=== PATIENT | male | born 1970 | race Two or more races ===

== ENCOUNTER 2024-11-18 13:41 | Inpatient (IN) | payer MEDICAID, OTHER ==
[~2024-11-18] VITALS: Ht 165.1 cm; Wt 75.5 kg
--- NOTE | 2024-11-18 13:53 | ED.PDOC ---
History of Present Illness HPI Comments 54-year-old male came to the ER stating that he has been having chest pain for the past 2 hours. 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 He does have a history of hypercholesterol hypertension blood pressure on arrival was 137/71. He states that his chest pain radiates to the shoulder. Denies any other symptoms. Chief Complaint: Chest Pain Time Seen by MD: 13:48 Reviewed Notes: Nurses Notes, Medications, Allergies Information Source: Patient Mode of Arrival: Ambulatory Severity: Moderate Timing: Hours Duration: Since onset Past Medical History PAST MEDICAL HISTORY: High Lipids, HTN Surgical History: Appendectomy, Denies all surgeries Social History Smoker: Non-Smoker Alcohol: Denies ETOH Use Drugs: Denies Drug Use Constitutional: denies: chills, diaphoresis, fatigue, fever, malaise, sweats, weakness, others EENTM: denies: blurred vision, double vision, ear bleeding, ear discharge, ear drainage, ear pain, ear ringing, eye pain, eye redness, hearing loss, mouth pain, mouth swelling, nasal discharge, nose bleeding, nose congestion, nose pain, photophobia, tearing, throat pain, throat swelling, voice changes, others Respiratory: denies: cough, hemoptysis, orthopnea, SOB at rest, shortness of breath, SOB with excertion, stridor, wheezing, others Cardiovascular: reports: chest pain; denies: dizzy spells, diaphoresis, Dyspnea on exertion, edema, irregular heart beat, left arm pain, lightheadedness, palpitations, PND, syncope, others Gastrointestinal: denies: abdomen distended, abdominal pain, blood streaked bowels, constipated, diarrhea, dysphagia, difficulty swallowing, hematemesis, melena, nausea, poor appetite, poor fluid intake, rectal bleeding, rectal pain, vomiting, others Genitourinary: denies: burning, dysuria, flank pain, frequency, hematuria, incontinence, penile discharge, penile sore, pain, testicle pain, testicle swelling, urgency, others Neurological: denies: dizziness, fainting, headache, left sided numbness, left sided weakness, numbness, paresthesia, pre-existing deficit, right sided numbness, right sided weakness, seizure, speech problems, tingling, tremors, weakness, others Musculoskeletal: denies: back pain, gout, joint pain, joint swelling, muscle pain, muscle stiffness, neck pain, others Integumetry: denies: bruises, change in color, change in hair/nails, dryness, laceration, lesions, lumps, rash, wounds, others Allergic/Immunocompromised: denies: Difficulty Healing, Frequent Infections, Hives, Itching, others Hematologic/Lymphatic: denies: anemia, blood clots, easy bleeding, easy bruising, swollen glands, others Endocrine: denies: excessive hunger, excessive sweating, excessive thirst, excessive urination, flushing, intolerance to cold, intolerance to heat, unexplained weight gain, unexplained weight loss, others Psychiatric: denies: anxiety, bipolar disorder, depression, hopeless, panic disorder, schizophrenia, sleepless, suicidal, others Physical Exam General Appearance: Moderate Distress HEENT: Normal ENT Inspection, Pharynx Normal, TMs Normal Neck: Full Range of Motion, Non-Tender, Normal, Normal Inspection Respiratory: Chest Non-Tender, Lungs Clear, No Accessory Muscle Use, No Respiratory Distress, Normal Breath Sounds Cardiovascular: No Edema, No JVD, No Murmur, No Gallop, Normal Peripheral Pulses, Regular Rate/Rhythm Breast Exam: Deferred Gastrointestinal: No Organomegaly, Non Tender, No Pulsatile Mass, Normal Bowel Sounds, Soft Genitalia: Deferred Pelvic: Deferred Rectal: Deferred Extremities: No calf tenderness, Normal capillary refill, Normal inspection, Normal range of motion, Non-tender, No pedal edema Musculoskeletal : Apperance: Normal Neurologic: Alert, 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 Was a procedure done?: No EKG EKG : Pulse Rate (adult): 80 Cardiac Rhythm: NSR Differential Dx Considerations may include: Chest pain Electrolyte imbalance X-Ray, Labs, Meds, VS Vital Signs Date Time Temp Pulse Resp B/P (MAP) Pulse Ox O2 Delivery O2 Flow Rate FiO2 11/18/24 13:53 80 Lab Test 11/18/24 13:58 Range/Units White Blood Count Pending Red Blood Count Pending Hemoglobin Pending Hematocrit Pending Mean Corpuscular Volume Pending Mean Corpuscular Hemoglobin Pending Mean Corpuscular Hemoglobin Concent Pending Red Cell Distribution Width Pending Platelet Count Pending Mean Platelet Volume Pending Neutrophils (%) (Auto) Pending Lymphocytes (%) (Auto) Pending Monocytes (%) (Auto) Pending Basophils (%) (Auto) Pending Neutrophils # (Auto) Pending Lymphocytes # (Auto) Pending Monocytes # (Auto) Pending Sodium Level Pending Potassium Level Pending Chloride Level Pending Carbon Dioxide Level Pending Anion Gap Pending Blood Urea Nitrogen Pending Creatinine Pending Glomerular Filtration Rate Calc Pending BUN/Creatinine Ratio Pending Serum Glucose Pending Calcium Level Pending Troponin I High Sensitivity Pending Patient alert. Complaining of chest pain. Vitals stable. Answering questions Was given aspirin. Was given nitro Was given morphine Was given Zofran. Continues to have chest pain. EKG reviewed does not show any acute changes. Has risk factors for coronary artery disease. Explained to the patient. Continue monitoring. Time of 1ST Reevaluation: 13:52 Reevaluation 1ST: Unchanged Patient Education/Counseling: Diagnosis, Treatment, Prognosis Family Education/Counseling: No Family Present SEPSIS Sepsis Screen Physician Orders Troponin-I Hs (11/18/24 13:44) Electrocardigram (11/18/24 13:44) Troponin-I Hs (11/18/24 14:44) Troponin-I Hs (11/18/24 16:44) Electrocardigram (11/18/24 14:44) Electrocardigram (11/18/24 16:44) Complete Blood Count (11/18/24 13:53) Basic Metabolic Panel (11/18/24 13:53) Vital Signs Date Time Temp Pulse Resp B/P (MAP) Pulse Ox O2 Delivery O2 Flow Rate FiO2 11/18/24 13:53 80 Laboratory Tests Test 11/18/24 13:58 White Blood Count Pending Departure 1 Departure Time of Disposition: 13:52 Impression: Primary Impression: Chest pain of unknown etiology Disposition: 09 ADMITTED INPATIENT Admit to: Med Surg Condition: Guarded Critical Care Note Critical Care Time?: Yes (90 min-critical care time only) Critical care comment: Continue to monitor Stability Stability form required: No Heart Score Heart Score: Heart Score Response (Comments) Value History Slightly Suspicious 0 EKG Normal 0 Age 45-64 1 Risk Factors >3 or Hx ASHD 2 Troponin Normal limit 0 Total 3 ONDINA RANDALL MD Nov 18, 2024 13:53
[2024-11-18 14:08] LABS: Basophils # (auto) 0.1 10 ^3/uL (0-0.2); Eosinophils # (auto) 0 10 ^3/uL (0-0.8); Eosinophils % (auto) 0.5 % (0.0-7.0); Hematocrit 41.2 % (41.0-53.0); Hemoglobin 14.2 g/dL (13.5-17.5); Lymphocytes # (auto) 2.1 10 ^3/uL (0.4-5.4); Lymphocytes % (auto) 29.1 % (10.0-50.0); Mean Corpuscular Hemoglobin 29.4 pg (28.0-32.0); Mean Corpuscular Hgb Conc. 34.5 g/dL (32.0-36.0); Mean Corpuscular Volume 85.2 fL (80.0-100.0); Monocytes # (auto) 0.4 10 ^3/uL (0-1.3); Monocytes % (auto) 5.2 % (0.0-12.0); Neutrophils # (auto) 4.6 10 ^3/uL (1.6-8.6); Neutrophils % (auto) 64.2 % (37.0-80.0); Nucleated Red Blood Cells % 0.1 %; Platelet Count (auto) 277 10^3/uL (140-450); Red Blood Cells 4.83 10^6/uL (4.5-5.90); Red Cell Distribution Width 14.4 % (11.8-14.3); White Blood Cell 7.2 10^3/uL (4.4-10.8)
[2024-11-18 14:17] LABS: Chloride 104 mmol/L (98-107); Potassium 3.9 mmol/L (3.5-5.1); Sodium 138 mmol/L (136-145)
[2024-11-18 14:18] LABS: Calcium 9.9 mg/dL (8.7-10.4)
[2024-11-18 14:19] LABS: Anion Gap 13 (5-15); Carbon Dioxide 21 mmol/L (20-31)
[2024-11-18 14:23] LABS: Blood Urea Nitrogen 20 mg/dL (9-23); Glucose 178 mg/dL (74-106)
[2024-11-18] MEDS: NITROGLYCERIN 0.4 MG SL TAB SL ONE (14:57)
[2024-11-18] MEDS: ASPirin 325 MG TAB PO ONE (14:57)
[2024-11-18] MEDS: ONDANSETRON HCL 4 MG/2 ML VIAL IV ONE (15:06)
[2024-11-18] MEDS: MORPHINE SULFATE 4 MG/ML SYR/VIAL IV ONE (15:07)
[2024-11-18] MEDS ORDERED: DOCUSATE SOD 100 MG CAP PO PRN (22:45)
[2024-11-18] MEDS: SODIUM CHLORIDE 0.9% 1,000 ML IV SCH (22:45)
[2024-11-18] MEDS ORDERED: ACETAMINOPHEN 325 MG TAB PO PRN (22:45)
[2024-11-18] MEDS ORDERED: hydrALAZINE HCL 20 MG/ML VL IV PRN (22:45)
[2024-11-18] MEDS ORDERED: ONDANSETRON HCL 4 MG/2 ML VIAL IV PRN (22:45)
--- NOTE | 2024-11-18 23:50 | DVHHP2 ---
History of Present Illness Reason for Visit: Chest pain of unknown etiology History of Present Illness The patient is a 54-year-old male with past medical history of hypertension, hyperlipidemia, and prediabetes who presented to [facility] ED with complaint of chest pain. Patient reports he has been experiencing chest pain that radiates to the left shoulder, rating 6/10 numeric scale, getting worse that prompted this visit. Patient was seen and evaluated in the ED, laboratory data shows WBC 7.2, platelets 277, sodium 138, potassium 3.9, BUN 20, creatinine 1.25, glucose 178, hemoglobin A1c 5.7, calcium 9.9, troponin < 3, blood pressure 123/73, heart rate 63, temperature 98.2 F, O2 saturation 97% on room air. Please see medication orders section in the computer. On my assessment, patient denies chest pain at this moment, no headache, no dizziness, no shortness of breath, no diaphoresis, no nausea, no vomiting, no fever, no chills. Patient was admitted for further evaluation and medical management. Past Medical History High Lipids, HTN, Pre diabetes Past Surgical History Appendectomy Family History Reviewed, noncontributory to the management of this case. Past Social History The patient lives at home, denies smoking, alcohol or illicit drugs abuse. Review of Systems Constitutional: Yes: Weakness; No: Fever, Chills, Sweats, Malaise, Other Eyes: No: Pain, Vision change, Conjunctivae inflammation, Eyelid inflammation, Other, Redness ENT: No: Ear pain, Ear discharge, Nose pain, Nose discharge, Nose congestion, Mouth pain, Mouth swelling, Throat pain, Throat swelling, Other Respiratory: No: Cough, Dry, Shortness of breath, SOB with excertion, Wheezing, Hemoptysis, Pleuritic Pain, Sputum, Wheezing, Other Cardiovascular: Chest Pain; No: Palpitations, Orthopnea, Paroxysmal Noc. Dyspnea, Edema, Lt Headedness, Other Gastrointestinal: No: Nausea, Vomiting, Abdominal Pain, Diarrhea, Constipation, Melena, Hematochezia, Other Genitourinary: No Dysuria, No Frequency, No Incontinence, No Hematuria, No Retention, No Other Musculoskeletal: No: other, neck pain, shoulder pain, arm pain, back pain, hand pain, leg pain, foot pain Skin: No: Rash, Lesions, Jaundice, Bruising, Other Neurological: No: Weakness, Numbness, Incoordination, Change in speech, Confusion, Seizures, Other Allergies: Coded Allergies: NO KNOWN ALLERGIES (Unverified , 11/18/24) Medications Current Medications Medications Dose Ordered Sig/Sergio Route Start Time Stop Time Status Last Admin Dose Admin Amlodipine Besylate 5 mg DAILY PO 11/19/24 10:00 Hydralazine HCl 10 mg Q6HP PRN IV 11/18/24 22:45 Aspirin 81 mg DAILY PO 11/19/24 10:00 Atorvastatin Calcium 20 mg HS PO 11/19/24 22:00 Sodium Chloride 1,000 ml @ 60 mls/hr [id number] IV 11/18/24 22:45 Acetaminophen/ Hydrocodone Bitart 1 tab Q4HP PRN PO 11/18/24 22:45 Ondansetron HCl 4 mg Q4HP PRN IV 11/18/24 22:45 Docusate Sodium 100 mg BIDPRN PRN PO 11/18/24 22:45 Acetaminophen 650 mg Q6HP PRN PO 11/18/24 22:45 Exam Vital Signs Vital Signs Date Time Temp Pulse Resp B/P (MAP) Pulse Ox O2 Delivery O2 Flow Rate FiO2 11/18/24 23:21 97.6 67 16 130/82 (98) 99 97.6 11/18/24 20:40 Room Air* 0 21 General Appearance: Alert, Oriented X3, Cooperative, No acute distress HEENT: Atraumatic, PERRLA, EOMI, Mucous membr. moist/pink Respiratory: Clear to auscultation, Normal air movement Cardiovascular: Regular rate, Normal S1, Normal S2, No murmurs Abdominal: Normal bowel sounds, Soft, No tenderness, No hepatospenomegaly, No masses Extremities: No clubbing, No cyanosis, No edema, Normal pulses, No tenderness/swelling Skin: No rashes, No breakdown, No significant lesion Neuro: Normal speech, Normal tone, Sensation intact, Cranial nerves 3-12 NL, Reflexes 2+, Other (Weakness) Psych/Mental Status: Mental status NL, Mood NL Labs/Xrays Labs Test 11/18/24 14:48 11/18/24 13:58 Range/Units Troponin I High Sensitivity < 3 L </=54 ng/L White Blood Count 7.2 4.4-10.8 10^3/uL Red Blood Count 4.83 4.5-5.90 10^6/uL Hemoglobin 14.2 13.5-17.5 g/dL Hematocrit 41.2 41.0-53.0 % Mean Corpuscular Volume 85.2 80.0-100.0 fL Mean Corpuscular Hemoglobin 29.4 28.0-32.0 pg Mean Corpuscular Hemoglobin Concent 34.5 32.0-36.0 g/dL Red Cell Distribution Width 14.4 H 11.8-14.3 % Platelet Count 277 140-450 10^3/uL Mean Platelet Volume 7.9 6.9-10.8 fL Neutrophils (%) (Auto) 64.2 37.0-80.0 % Lymphocytes (%) (Auto) 29.1 10.0-50.0 % Monocytes (%) (Auto) 5.2 0.0-12.0 % Eosinophils (%) (Auto) 0.5 0.0-7.0 % Basophils (%) (Auto) 1.0 0.0-2.0 % Neutrophils # (Auto) 4.6 1.6-8.6 10 ^3/uL Lymphocytes # (Auto) 2.1 0.4-5.4 10 ^3/uL Monocytes # (Auto) 0.4 0-1.3 10 ^3/uL Eosinophils # (Auto) 0 0-0.8 10 ^3/uL Basophils # (Auto) 0.1 0-0.2 10 ^3/uL Nucleated Red Blood Cells 0.1 % Sodium Level 138 136-145 mmol/L Potassium Level 3.9 3.5-5.1 mmol/L Chloride Level 104 98-107 mmol/L Carbon Dioxide Level 21 20-31 mmol/L Anion Gap 13 5-15 Blood Urea Nitrogen 20 9-23 mg/dL Creatinine 1.25 0.700-1.30 mg/dL Glomerular Filtration Rate Calc 69 >90 mL/min BUN/Creatinine Ratio 16.0 10.0-20.0 Serum Glucose 178 H 74-106 mg/dL Hemoglobin A1c 5.7 <5.7 % A1C Calcium Level 9.9 8.7-10.4 mg/dL Assessment/Plan Assessment/Plan Chest pain of unknown etiology Hyperglycemia Generalized weakness Plan 1. Admit to telemetry unit 2. Breathing treatment 3. Pain control management 4. Management of fluids and electrolytes 5. Consultation for hospitalist 6. Diagnostic tests chest x-ray 7. DVT prophylaxis-on aspirin 8. Repeat labs CBC, CMP in a.m. 9. Continue with current medical management 10. Treatment plan discussed with patient and RN. Patient verbalized understanding. Plan discussed with: Patient, Other (RN) My Orders Orders - JOAO DECKER DNP Procedure Category Date Status Time Amlodipine Tablet PHA 11/19/24 In Process (Norvasc Tablet) 10:00 Hydralazine Injection PHA 11/18/24 In Process (Apresoline Inject 22:45 Aspirin Tablet PHA 11/19/24 In Process 10:00 Atorvastatin (Lipitor) PHA 11/19/24 In Process 22:00 Allergies ESCOBAR 11/18/24 In Process 22:38 Code Status CODE 11/18/24 Transmitted 22:38 Sodium Chloride 0.9% PHA 11/18/24 In Process 22:45 Oxygen Per Hour RT 11/18/24 Transmitted 22:38 Hydrocodone-Acet PHA 11/18/24 In Process 5/325mg Tab (Adams 22:45 Ondansetron Hcl PHA 11/18/24 In Process (Zofran) 22:45 Docusate Sodium PHA 11/18/24 In Process Capsule (Colace 22:45 Complete Blood Count LAB 11/19/24 Verified 04:00 Comprehensive LAB 11/19/24 Verified Metabolic Panel 04:00 Cardiac DIET 11/19/24 Transmitted Diet-2gna,Lofat,Lochol Breakfast Condition: Serious ESCOBAR 11/18/24 In Process 22:38 Acetaminophen Tablet PHA 11/18/24 In Process (Tylenol Tablet) 22:45 Bedrest With Bathroom ESCOBAR 11/18/24 In Process Privileg 22:38 Sequential ESCOBAR 11/18/24 In Process Compression Device Problem List: (1) Chest pain of unknown etiology (2) Hyperglycemia (3) Generalized weakness Date of Service: Nov 18, 2024 Billing Provider: JOAO DECKER DNP Common Visit Codes: [id number] INP/OBS CARE (HIGH) JOAO DECKER DNP Nov 18, 2024 23:50
[2024-11-19] VITALS (7 sets, daily range): BP systolic 113–135; BP diastolic 61–75; PULSE 53–73; RESP 11–20; TEMP 97.7–98.4; O2SAT 96–99
[2024-11-19] MEDS ORDERED: NITROGLYCERIN 0.4 MG SL TAB SL PRN
[2024-11-19] MEDS ORDERED: MORPHINE SULFATE INJ 2 MG/ml SYRG IV PRN
[2024-11-19] MEDS ORDERED: ATOR40TA52 PO (03:21)
[2024-11-19] MEDS ORDERED: AMLO1TAB22 PO (03:21)
[2024-11-19] MEDS ORDERED: LOS25T PO (03:21)
[2024-11-19 06:40] LABS: Basophils # (auto) 0 10 ^3/uL (0-0.2); Basophils % (auto) 0.6 % (0.0-2.0); Eosinophils # (auto) 0.1 10 ^3/uL (0-0.8); Eosinophils % (auto) 1.3 % (0.0-7.0); Hematocrit 38.4 % (41.0-53.0); Hemoglobin 13.2 g/dL (13.5-17.5); Lymphocytes % (auto) 25.6 % (10.0-50.0); Mean Corpuscular Hemoglobin 29.5 pg (28.0-32.0); Mean Corpuscular Hgb Conc. 34.3 g/dL (32.0-36.0); Mean Corpuscular Volume 85.9 fL (80.0-100.0); Monocytes # (auto) 0.6 10 ^3/uL (0-1.3); Monocytes % (auto) 8.3 % (0.0-12.0); Neutrophils % (auto) 64.2 % (37.0-80.0); Platelet Count (auto) 256 10^3/uL (140-450); Red Blood Cells 4.47 10^6/uL (4.5-5.90); Red Cell Distribution Width 14.6 % (11.8-14.3); White Blood Cell 7.7 10^3/uL (4.4-10.8)
[2024-11-19 07:01] LABS: Alanine Aminotransferase 15 U/L (7-40); Albumin 4.2 g/dL (3.2-4.8); Alkaline Phosphatase 93 U/L (46-116); Anion Gap 8 (5-15); Aspartate Aminotransferase 21 U/L (<34); BUN/Creatinine Ratio 13.8 (10.0-20.0); Bilirubin, Total 0.8 mg/dL (0.2-1.0); Blood Urea Nitrogen 16 mg/dL (9-23); Calcium 8.8 mg/dL (8.7-10.4); Carbon Dioxide 28 mmol/L (20-31); Chloride 105 mmol/L (98-107); Glucose 99 mg/dL (74-106); Potassium 4.1 mmol/L (3.5-5.1); Sodium 141 mmol/L (136-145); Total Protein 7.2 g/dL (5.7-8.2)
[2024-11-19] MEDS: ASPirin 81 mg TAB PO SCH (09:02)
[2024-11-19] MEDS: amLODIPine BESYLATE 5 MG TAB PO SCH (09:02)
--- NOTE | 2024-11-19 16:14 | DVHPN2 ---
Subjective Patient complained of chest pain. Changes from previous H/P or p: No Changes Eyes: No Pain, No Vision change, No Conjunctivae inflammation, No Eyelid inflammation, No Other, No Redness ENT: No Ear pain, No Ear discharge, No Nose pain, No Nose discharge, No Nose congestion, No Mouth pain, No Mouth swelling, No Throat pain, No Throat swelling, No Other Cardiovascular: Chest Pain; No Palpitations, No Orthopnea, No Paroxysmal Noc. Dyspnea, No Edema, No Lt Headedness, No Other Respiratory: No Cough, No Dry, No Shortness of breath, No SOB with excertion, No Wheezing, No Hemoptysis, No Pleuritic Pain, No Sputum, No Other Gastrointestinal: No Nausea, No Vomiting, No Abdominal Pain, No Diarrhea, No Constipation, No Melena, No Hematochezia, No Other Genitourinary: No Dysuria, No Frequency, No Incontinence, No Hematuria, No Retention, No Other Musculoskeletal: No other, No neck pain, No shoulder pain, No arm pain, No back pain, No hand pain, No leg pain, No foot pain Skin: No Rash, No Lesions, No Jaundice, No Bruising, No Other Objective Vitals Vital Signs Date Time Temp Pulse Resp B/P (MAP) Pulse Ox O2 Delivery O2 Flow Rate FiO2 11/19/24 12:39 98.0 73 11 115/71 (86) 98 98.0 11/18/24 20:40 Room Air* 0 21 Exam HEENT pupils are reactive Neck is supple CVS S1-S2 regular rate and rhythm Respiratory bilateral equal breath sounds GI positive bowel sounds Extremities no edema [employer]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 Medications Current Medications Medications Dose Ordered Sig/Sergio Route Start Time Stop Time Status Last Admin Dose Admin Amlodipine Besylate 5 mg DAILY PO 11/19/24 10:00 11/19/24 09:02 5 MG Hydralazine HCl 10 mg Q6HP PRN IV 11/18/24 22:45 Aspirin 81 mg DAILY PO 11/19/24 10:00 11/19/24 09:02 81 MG Atorvastatin Calcium 20 mg HS PO 11/19/24 22:00 Sodium Chloride 1,000 ml @ 60 mls/hr [id number] IV 11/18/24 22:45 11/19/24 12:50 60 MLS/HR Acetaminophen/ Hydrocodone Bitart 1 tab Q4HP PRN PO 11/18/24 22:45 Ondansetron HCl 4 mg Q4HP PRN IV 11/18/24 22:45 Docusate Sodium 100 mg BIDPRN PRN PO 11/18/24 22:45 Acetaminophen 650 mg Q6HP PRN PO 11/18/24 22:45 Nitroglycerin 0.4 mg Q5MINP PRN SL 11/19/24 00:00 Morphine Sulfate 2 mg Q30M PRN IV 11/19/24 00:00 Laboratory Results Laboratory Tests 11/19/24 06:15 Chemistry Test 11/19/24 06:15 Albumin 4.2 g/dL (3.2-4.8) Calcium Level 8.8 mg/dL (8.7-10.4) Total Protein 7.2 g/dL (5.7-8.2) LFT Test 11/19/24 06:15 Alanine Aminotransferase (ALT) 15 U/L (7-40) Alkaline Phosphatase 93 U/L (46-116) Aspartate Amino Transferase (AST) 21 U/L (<34) Total Bilirubin 0.8 mg/dL (0.2-1.0) Assessment/Plan Assessment/Plan 54-year-old male with a known history of hypertension, dyslipidemia hit for chest pain 1. Chest pain rule out acute [place] 2. Hypertension 3. Dyslipidemia -troponins, 2D echo, cardiology consultation Plan discussed with: Patient My Orders Orders - CHANG VARGAS MD Procedure Category Date Status Time * Cardiology Consult CONS 11/19/24 Transmitted 16:10 Date of Service: Nov 19, 2024 Billing Provider: CHANG VARGAS MD Common Visit Codes: [id number] INP/OBS CARE(MOD) CHANG VARGAS MD Nov 19, 2024 16:14
[2024-11-19] MEDS: ATORVASTATIN 20 MG TAB PO SCH (21:00)
[2024-11-20] VITALS (9 sets, daily range): BP systolic 118–141; BP diastolic 76–89; PULSE 58–98; RESP 14–20; TEMP 97.3–98.3; O2SAT 92–99
--- NOTE | 2024-11-20 11:12 | DVHINCON2 ---
Date Seen: Nov 20, 2024 Referring Physician Devin Reason for Consultation Chest Pain History of Present Illness 54-year-old male with PMH for HTN, HLD, occasional alcohol use, intermittent drug use with cocaine presents to the hospital with chest pain. Patient states he has at work when he had a sudden onset of chest pressure left-sided, nonradiating, associated with mild shortness of breath. Upon evaluation in the ER patient noted to have troponin negative x2. EKG negative for acute ischemic changes. Past Medical History HTN HLD Past Surgical History Denies previous cardiac surgeries Family History: Diabetes mellitus G8 MOTHER Social History Occasional cocaine use, occasional ETOH with binge drinking. Allergies: Coded Allergies: NO KNOWN ALLERGIES (Unverified , 11/18/24) Home Meds Reported Medications Amlodipine Besylate (Amlodipine Besylate) 5 Mg Tab, 1 TAB PO DAILY 11/19/24 Losartan Potassium (Losartan Potassium) 25 Mg Tab, 1 TAB PO DAILY 11/19/24 Atorvastatin Calcium (ATORVASTATIN CALCIUM) 40 Mg Tab, 1 TAB PO HS 11/19/24 Current Medications Current Medications Medications (Trade) Dose Ordered Sig/Sergio Route PRN Reason Start Time Stop Time Status Last Admin Atorvastatin Calcium (Lipitor) 20 mg HS PO 11/19/24 22:00 11/19/24 21:00 Review of Systems Constitutional: No: Fever, Chills, Sweats, Weakness, Malaise, Other Eyes: No: Pain, Vision change, Conjunctivae inflammation, Eyelid inflammation, Other, Redness ENT: No: Ear pain, Ear discharge, Nose pain, Nose discharge, Nose congestion, Mouth pain, Mouth swelling, Throat pain, Throat swelling, Other Respiratory: No: Cough, Dry, Shortness of breath, SOB with exertion, Wheezing, Hemoptysis, Pleuritic Pain, Sputum, Wheezing, Other Cardiovascular: ; No: , Orthopnea, Paroxysmal Noc. Dyspnea, Edema, Lt Headedness, Other positive: Chest Pain Palpitations Gastrointestinal: No: Nausea, Vomiting, Abdominal Pain, Diarrhea, Constipation, Melena, Hematochezia, Other Genitourinary: No Dysuria, No Frequency, No Incontinence, No Hematuria, No Retention, No Other Musculoskeletal: neck pain; No: other, shoulder pain, arm pain, back pain, hand pain, leg pain, foot pain Skin: No: Rash, Lesions, Jaundice, Bruising, Other Neurological: Other (Dizziness, headache.); No: Weakness, Numbness, Incoordination, Change in speech, Confusion, Seizures Vital Signs Vital Signs Date Time Temp Pulse Resp B/P (MAP) Pulse Ox O2 Delivery O2 Flow Rate FiO2 11/20/24 09:00 97.5 64 20 121/87 (98) 98 97.5 11/19/24 03:23 Room Air* 0 21 Physical Exam General appearance: Patient is well-developed, well-nourished, in no acute distress. HEENT: Exam shows: Normocephalic, atraumatic, PERRLA, EOMI Neck: Supple, no bruits Chest: Equal chest excursion bilaterally. Breath sounds normal-no rales or wheezes. Heart: Rhythm: Regular rate; no murmur or gallop Abdomen: Exam shows: Soft, nontender, nondistended Musculoskeletal: No clubbing, no cyanosis, no lower extremity edema Dermatology: Skin warm, moist. Neurological: Exam shows: Alert and oriented x4, normal speech Available prior records, labs, EKG, rhythm strips reviewed and interpreted Labs/Diagnostic Data Labs Test 11/19/24 06:15 11/18/24 14:48 11/18/24 13:58 Range/Units White Blood Count 7.7 4.4-10.8 10^3/uL Red Blood Count 4.47 L 4.5-5.90 10^6/uL Hemoglobin 13.2 L 13.5-17.5 g/dL Hematocrit 38.4 L 41.0-53.0 % Mean Corpuscular Volume 85.9 80.0-100.0 fL Mean Corpuscular Hemoglobin 29.5 28.0-32.0 pg Mean Corpuscular Hemoglobin Concent 34.3 32.0-36.0 g/dL Red Cell Distribution Width 14.6 H 11.8-14.3 % Platelet Count 256 140-450 10^3/uL Mean Platelet Volume 7.9 6.9-10.8 fL Neutrophils (%) (Auto) 64.2 37.0-80.0 % Lymphocytes (%) (Auto) 25.6 10.0-50.0 % Monocytes (%) (Auto) 8.3 0.0-12.0 % Eosinophils (%) (Auto) 1.3 0.0-7.0 % Basophils (%) (Auto) 0.6 0.0-2.0 % Neutrophils # (Auto) 5.0 1.6-8.6 10 ^3/uL Lymphocytes # (Auto) 2.0 0.4-5.4 10 ^3/uL Monocytes # (Auto) 0.6 0-1.3 10 ^3/uL Eosinophils # (Auto) 0.1 0-0.8 10 ^3/uL Basophils # (Auto) 0 0-0.2 10 ^3/uL Nucleated Red Blood Cells 0.0 % Sodium Level 141 136-145 mmol/L Potassium Level 4.1 3.5-5.1 mmol/L Chloride Level 105 98-107 mmol/L Carbon Dioxide Level 28 20-31 mmol/L Anion Gap 8 5-15 Blood Urea Nitrogen 16 9-23 mg/dL Creatinine 1.16 0.700-1.30 mg/dL Glomerular Filtration Rate Calc 75 >90 mL/min BUN/Creatinine Ratio 13.8 10.0-20.0 Serum Glucose 99 74-106 mg/dL Calcium Level 8.8 8.7-10.4 mg/dL Total Bilirubin 0.8 0.2-1.0 mg/dL Aspartate Amino Transferase (AST) 21 <34 U/L Alanine Aminotransferase (ALT) 15 7-40 U/L Alkaline Phosphatase 93 46-116 U/L Total Protein 7.2 5.7-8.2 g/dL Albumin 4.2 3.2-4.8 g/dL Troponin I High Sensitivity < 3 L </=54 ng/L Hemoglobin A1c 5.7 <5.7 % A1C Assessment * Chest pain - troponins negative. EKG negative for acute ischemic changes. Follow up echo. Continue on aspirin and statin. Plan for stress test in a.m.. NPO after midnight. * Uncontrolled HTN - better controlled, on amlodipine 5 mg p.o. daily. Titrate as tolerated. * HLD- statin * History of substance abuse - check UDS. Case Discussed with Dr Atkinson. Follow up echo, plan for stress test in a.m. for ischemic eval. NPO after midnight. Critical care, time spent: 40 minutes This medical document was created using an electronic medical record system with voice recognition software and computerized dictation system. Although this document has been carefully reviewed, there might still be some phonetic and typographical errors. Occasional wrong-word or ``sound-alike substitutions may have occurred due to the inherent limitations of voice recognition software. These areas are purely typographical due to imperfections of the software programs and do not reflect any compromise in the patient's medical care. Please read the chart carefully and recognize, using context, where these substitutions have occurred. Thank you for allowing me to participate in the management of this patient. The treatment plan was discussed with and agreed upon by patient/family including requesting consultants and ordering of imaging/procedures. Plan discussed with: Patient NYHA Physical activity limitations: Class2(Slight)fatigue,sob Date of Service: Nov 20, 2024 Billing Provider: WARNER VALERIO Cardiology Common Codes: [id number] INP/OBS CARE (High), [id number] CARE 30-74 MIN WARNER VALERIO Nov 20, 2024 11:12
--- NOTE | 2024-11-20 12:11 | DVH ---
AP portable chest CLINICAL INDICATION: Chest pain FINDINGS: Heart size is normal. No infiltrates or effusions. No bony thoracic abnormalities. IMPRESSION: 1. Normal chest x-ray.
--- NOTE | 2024-11-20 14:51 | DVHPN2 ---
Subjective Patient complained of chest pain. Changes from previous H/P or p: No Changes Eyes: No Pain, No Vision change, No Conjunctivae inflammation, No Eyelid inflammation, No Other, No Redness ENT: No Ear pain, No Ear discharge, No Nose pain, No Nose discharge, No Nose congestion, No Mouth pain, No Mouth swelling, No Throat pain, No Throat swelling, No Other Cardiovascular: Chest Pain; No Palpitations, No Orthopnea, No Paroxysmal Noc. Dyspnea, No Edema, No Lt Headedness, No Other Respiratory: No Cough, No Dry, No Shortness of breath, No SOB with excertion, No Wheezing, No Hemoptysis, No Pleuritic Pain, No Sputum, No Other Gastrointestinal: No Nausea, No Vomiting, No Abdominal Pain, No Diarrhea, No Constipation, No Melena, No Hematochezia, No Other Genitourinary: No Dysuria, No Frequency, No Incontinence, No Hematuria, No Retention, No Other Musculoskeletal: No other, No neck pain, No shoulder pain, No arm pain, No back pain, No hand pain, No leg pain, No foot pain Skin: No Rash, No Lesions, No Jaundice, No Bruising, No Other Objective Vitals Vital Signs Date Time Temp Pulse Resp B/P (MAP) Pulse Ox O2 Delivery O2 Flow Rate FiO2 11/20/24 13:00 97.5 64 20 136/83 (100) 98 97.5 11/19/24 03:23 Room Air* 0 21 Intake/Output Intake and Output 11/20/24 07:00 Intake Total 60 ml Balance 60 ml IV Total 60 ml Exam HEENT pupils are reactive Neck is supple CVS S1-S2 regular rate and rhythm Respiratory bilateral equal breath sounds GI positive bowel sounds Extremities no edema [employer] no motor deficit Medications Current Medications Medications Dose Ordered Sig/Sergio Route Start Time Stop Time Status Last Admin Dose Admin Amlodipine Besylate 5 mg DAILY PO 11/19/24 10:00 11/20/24 12:08 5 MG Hydralazine HCl 10 mg Q6HP PRN IV 11/18/24 22:45 Aspirin 81 mg DAILY PO 11/19/24 10:00 11/20/24 12:08 81 MG Atorvastatin Calcium 20 mg HS PO 11/19/24 22:00 11/19/24 21:00 20 MG Sodium Chloride 1,000 ml @ 60 mls/hr [id number] IV 11/18/24 22:45 11/20/24 12:07 60 MLS/HR Acetaminophen/ Hydrocodone Bitart 1 tab Q4HP PRN PO 11/18/24 22:45 Ondansetron HCl 4 mg Q4HP PRN IV 11/18/24 22:45 Docusate Sodium 100 mg BIDPRN PRN PO 11/18/24 22:45 Acetaminophen 650 mg Q6HP PRN PO 11/18/24 22:45 Nitroglycerin 0.4 mg Q5MINP PRN SL 11/19/24 00:00 Morphine Sulfate 2 mg Q30M PRN IV 11/19/24 00:00 Laboratory Results Laboratory Tests 11/19/24 06:15 Assessment/Plan Assessment/Plan 54-year-old male with a known history of hypertension, dyslipidemia hit for chest pain 1. Chest pain rule out acute [place] 2. Hypertension 3. Dyslipidemia -troponins, 2D echo, cardiology consultation appreciated patient is currently scheduled for stress test in a.m.. -keep NPO after midnight. Plan discussed with: Patient My Orders Orders - CHANG VARGAS MD Procedure Category Date Status Time * Cardiology Consult CONS 11/19/24 Transmitted 16:10 Date of Service: Nov 20, 2024 Billing Provider: CHANG VARGAS MD Common Visit Codes: [id number] INP/OBS CARE(MOD) CHANG VARGAS MD Nov 20, 2024 14:51
--- NOTE | 2024-11-20 23:18 | DVHINCON2 ---
Date Seen: Nov 20, 2024 Referring Physician Devin Reason for Consultation Chest Pain History of Present Illness This is a 54-year-old male with a PMH of HTN, HLD, occasional alcohol use, intermittent drug use with cocaine presents to the ED with complaints of chest pain. Patient states he has at work when he had a sudden onset of chest pressure left-sided, nonradiating, associated with mild shortness of breath. Upon eval uation in the ED patient noted to have troponin negative x 2. EKG negative for acute ischemic changes. Chest x-ray showed NAD. Patient was admitted to the hospital. I am asked to consult on this patient. Past Medical History HTN HLD Past Surgical History Denies previous cardiac surgeries Family History: Diabetes mellitus G8 MOTHER Allergies: Coded Allergies: NO KNOWN ALLERGIES (Unverified , 11/18/24) Home Meds Reported Medications Amlodipine Besylate (Amlodipine Besylate) 5 Mg Tab, 1 TAB PO DAILY 11/19/24 Losartan Potassium (Losartan Potassium) 25 Mg Tab, 1 TAB PO DAILY 11/19/24 Atorvastatin Calcium (ATORVASTATIN CALCIUM) 40 Mg Tab, 1 TAB PO HS 11/19/24 Current Medications Current Medications Medications (Trade) Dose Ordered Sig/Sergio Route PRN Reason Start Time Stop Time Status Last Admin Atorvastatin Calcium (Lipitor) 20 mg HS PO 11/19/24 22:00 11/19/24 21:00 Review of Systems Constitutional: No: Fever, Chills, Sweats, Weakness, Malaise, Other Eyes: No: Pain, Vision change, Conjunctivae inflammation, Eyelid inflammation, Other, Redness ENT: No: Ear pain, Ear discharge, Nose pain, Nose discharge, Nose congestion, Mouth pain, Mouth swelling, Throat pain, Throat swelling, Other Respiratory: No: Cough, Dry, Shortness of breath, SOB with exertion, Wheezing, Hemoptysis, Pleuritic Pain, Sputum, Wheezing, Other Cardiovascular: ; No: , Orthopnea, Paroxysmal Noc. Dyspnea, Edema, Lt Headed ness, Other positive: Chest Pain Palpitations Gastrointestinal: No: Nausea, Vomiting, Abdominal Pain, Diarrhea, Constipation, Melena, Hematochezia, Other Genitourinary: No Dysuria, No Frequency, No Incontinence, No Hematuria, No Ret ention, No Other Musculoskeletal: neck pain; No: other, shoulder pain, arm pain, back pain, hand pain, leg pain, foot pain Skin: No: Rash, Lesions, Jaundice, Bruising, Other Neurological: Other (Dizziness, headache.); No: Weakness, Numbness, Incoordinat ion, Change in speech, Confusion, Seizures Vital Signs Vital Signs Date Time Temp Pulse Resp B/P (MAP) Pulse Ox O2 Delivery O2 Flow Rate FiO2 11/20/24 16:36 97.3 60 20 132/76 (94) 98 97.3 11/20/24 08:00 Room Air* 0 21 Physical Exam GENERAL: Alert and oriented x 3. No acute distress. EYES: PERRL, EOMI. Anicteric. HENT: Moist mucous membranes. LUNGS: Clear to auscultation bilaterally. CARDIOVASCULAR: Regular rate and rhythm. ABDOMEN: Soft, nontender and nondistended. EXTREMITIES: No edema. NEUROLOGIC: No focal neurological deficits. SKIN: Warm, dry. Labs/Diagnostic Data Labs Test 11/19/24 06:15 11/18/24 14:48 11/18/24 13:58 Range/Units White Blood Count 7.7 4.4-10.8 10^3/uL Red Blood Count 4.47 L 4.5-5.90 10^6/uL Hemoglobin 13.2 L 13.5-17.5 g/dL Hematocrit 38.4 L 41.0-53.0 % Mean Corpuscular Volume 85.9 80.0-100.0 fL Mean Corpuscular Hemoglobin 29.5 28.0-32.0 pg Mean Corpuscular Hemoglobin Concent 34.3 32.0-36.0 g/dL Red Cell Distribution Width 14.6 H 11.8-14.3 % Platelet Count 256 140-450 10^3/uL Mean Platelet Volume 7.9 6.9-10.8 fL Neutrophils (%) (Auto) 64.2 37.0-80.0 % Lymphocytes (%) (Auto) 25.6 10.0-50.0 % Monocytes (%) (Auto) 8.3 0.0-12.0 % Eosinophils (%) (Auto) 1.3 0.0-7.0 % Basophils (%) (Auto) 0.6 0.0-2.0 % Neutrophils # (Auto) 5.0 1.6-8.6 10 ^3/uL Lymphocytes # (Auto) 2.0 0.4-5.4 10 ^3/uL Monocytes # (Auto) 0.6 0-1.3 10 ^3/uL Eosinophils # (Auto) 0.1 0-0.8 10 ^3/uL Basophils # (Auto) 0 0-0.2 10 ^3/uL Nucleated Red Blood Cells 0.0 % Sodium Level 141 136-145 mmol/L Potassium Level 4.1 3.5-5.1 mmol/L Chloride Level 105 98-107 mmol/L Carbon Dioxide Level 28 20-31 mmol/L Anion Gap 8 5-15 Blood Urea Nitrogen 16 9-23 mg/dL Creatinine 1.16 0.700-1.30 mg/dL Glomerular Filtration Rate Calc 75 >90 mL/min BUN/Creatinine Ratio 13.8 10.0-20.0 Serum Glucose 99 74-106 mg/dL Calcium Level 8.8 8.7-10.4 mg/dL Total Bilirubin 0.8 0.2-1.0 mg/dL Aspartate Amino Transferase (AST) 21 <34 U/L Alanine Aminotransferase (ALT) 15 7-40 U/L Alkaline Phosphatase 93 46-116 U/L Total Protein 7.2 5.7-8.2 g/dL Albumin 4.2 3.2-4.8 g/dL Troponin I High Sensitivity < 3 L </=54 ng/L Hemoglobin A1c 5.7 <5.7 % A1C Assessment Chest pain. Uncontrolled HTN. HLD. History of substance abuse. Plan/Recommendation I agree with your ongoing assessment and care of plan. Patient has been seen by Kenny Ch SECRETARY OF POLICE on my behalf, him and I discussed the plan with the patient. Echocardiogram. Stress test in a.m. for ischemic eval. NPO after midnight. Continue on aspirin and statin. Amlodipine 5 mg p.o. daily. Titrate as tolerated. Check UDS. IV Hydralazine for SBP> 150. [place] for pain management. Additional plan as per the hospital course. Plan discussed with: Patient NYHA Physical activity limitations: Class2(Slight)fatigue,sob Date of Service: Nov 20, 2024 Billing Provider: JUAN JOSE LANDEROS MD Cardiology Common Codes: [id number] INP/OBS CARE (High) Cardiology Consultation Codes: [id number] CONSULT <45MIN JUAN JOSE LANDEROS MD Nov 20, 2024 16:52
[2024-11-21 01:00] VITALS: BP_SYST 134; BP_SYST 140; BP_DIAS 79; BP_DIAS 90; PULSE 58; PULSE 77; RESP 17; RESP 18; TEMP 97.7; TEMP 98; O2SAT 97
[2024-11-21 05:00] VITALS: BP 132/82; PULSE 66; RESP 17; TEMP 97.8; O2SAT 96
[2024-11-21 08:00] VITALS: PULSE 62; PULSE 71; RESP 20; O2SAT 98
[2024-11-21 09:00] VITALS: BP 122/71; PULSE 71; RESP 16; TEMP 97.7; O2SAT 98
[2024-11-21 13:13] LABS: Amphetamine Screen, Urine Neg (NEGATIVE); Barbiturate Scree,Urine Neg (NEGATIVE); Benzodiazephine Screen, Urine Neg (NEGATIVE); Cannabinoid Screen, Urine Neg (NEGATIVE); Cocaine Screen, Urine Neg (NEGATIVE); Opiate Scree,Urine Neg (NEGATIVE); Phencyclidine Screen, Urine Neg (NEGATIVE)
[2024-11-21] MEDS: REGADENOSON 0.4 MG/5 ML SYRG IV ONE ×2 (13:53)
--- NOTE | 2024-11-21 14:51 | DVHDS2 ---
Discharge Summary Date of Admission Nov 18, 2024 at 23:49 Date of Discharge: Nov 21, 2024 Labs/Diagnostic Data: Laboratory Results Test 11/21/24 11:30 11/19/24 06:15 11/18/24 14:48 11/18/24 13:58 Urine Opiates Screen Neg (NEGATIVE) Urine Fentanyl Screen Neg (NEGATIVE) Urine Barbiturates Screen Neg (NEGATIVE) Urine Phencyclidine Screen Neg (NEGATIVE) Urine Amphetamines Screen Neg (NEGATIVE) Urine Benzodiazepines Screen Neg (NEGATIVE) Urine Cocaine Screen Neg (NEGATIVE) Urine Cannabinoids Screen Neg (NEGATIVE) White Blood Count 7.7 10^3/uL (4.4-10.8) Red Blood Count 4.47 10^6/uL (4.5-5.90) Hemoglobin 13.2 g/dL (13.5-17.5) Hematocrit 38.4 % (41.0-53.0) Mean Corpuscular Volume 85.9 fL (80.0-100.0) Mean Corpuscular Hemoglobin 29.5 pg (28.0-32.0) Mean Corpuscular Hemoglobin Concent 34.3 g/dL (32.0-36.0) Red Cell Distribution Width 14.6 % (11.8-14.3) Platelet Count 256 10^3/uL (140-450) Mean Platelet Volume 7.9 fL (6.9-10.8) Neutrophils (%) (Auto) 64.2 % (37.0-80.0) Lymphocytes (%) (Auto) 25.6 % (10.0-50.0) Monocytes (%) (Auto) 8.3 % (0.0-12.0) Eosinophils (%) (Auto) 1.3 % (0.0-7.0) Basophils (%) (Auto) 0.6 % (0.0-2.0) Neutrophils # (Auto) 5.0 10 ^3/uL (1.6-8.6) Lymphocytes # (Auto) 2.0 10 ^3/uL (0.4-5.4) Monocytes # (Auto) 0.6 10 ^3/uL (0-1.3) Eosinophils # (Auto) 0.1 10 ^3/uL (0-0.8) Basophils # (Auto) 0 10 ^3/uL (0-0.2) Nucleated Red Blood Cells 0.0 % Sodium Level 141 mmol/L (136-145) Potassium Level 4.1 mmol/L (3.5-5.1) Chloride Level 105 mmol/L (98-107) Carbon Dioxide Level 28 mmol/L (20-31) Anion Gap 8 (5-15) Blood Urea Nitrogen 16 mg/dL (9-23) Creatinine 1.16 mg/dL (0.700-1.30) Glomerular Filtration Rate Calc 75 mL/min (>90) BUN/Creatinine Ratio 13.8 (10.0-20.0) Serum Glucose 99 mg/dL (74-106) Calcium Level 8.8 mg/dL (8.7-10.4) Total Bilirubin 0.8 mg/dL (0.2-1.0) Aspartate Amino Transferase (AST) 21 U/L (<34) Alanine Aminotransferase (ALT) 15 U/L (7-40) Alkaline Phosphatase 93 U/L (46-116) Total Protein 7.2 g/dL (5.7-8.2) Albumin 4.2 g/dL (3.2-4.8) Troponin I High Sensitivity < 3 ng/L (</=54) Hemoglobin A1c 5.7 % A1C (<5.7) Other Laboratory Tests 11/19/24 06:15 Brief Hx & Hospital Course: 54-year-old male with a known history of hypertension, dyslipidemia hit for chest pain 1. Chest pain rule out acute [place] 2. Hypertension 3. Dyslipidemia -troponins, 2D echo, ca Final Diagnosis/Problems List 54-year-old male with a known history of hypertension, dyslipidemia hit for chest pain 1. Chest pain rule out acute [place] 2. Hypertension 3. Dyslipidemia -troponins, 2D echo, ca Discharge Disposition: Home Discharge Instruct/Medications Diet: Cardiac 2g Na,low cholest Activity: No Restrictions, As Tolerated Follow Up/Referral: Follow up with the PCP in one week. Medications: Resume home medications. Discharge Statement: "Patient was advised to return to the ER or call 911 if any headaches, dizziness, shortness of breath, chest pain, abdominal pain, bleeding, fevers, or worsening of medical condition. Patient was counseled about treatment plan, medications, possible side effects, patientverbalized understanding. All questions were answered to the best of my ability. This discharge took greater then 30 minutes in planning, reviewing documentation, counseling the patient, and discussing with other team members." ASSESSMENT ASSESSMENT Assessment 54-year-old male with a known history of hypertension, dyslipidemia hit for chest pain 1. Chest pain rule out acute [place] 2. Hypertension 3. Dyslipidemia -troponins, 2D echo, ca CHANG VARGAS MD Nov 21, 2024 14:51
--- NOTE | 2024-11-21 15:35 | DVHSR ---
APPROVED REPORT Exam: Nuclear Stress Test BMI: 0 Stress Test Details HR Max Heart Rate (APMHR): 167.218096 bpm Target HR (85% APMHR): 141.381638 bpm BP ECG Stress ECG Conclusion lvef 66% normal perfusion scan no ischemia noted NM EXAM: Myocardial Perfusion REST/STRESS Imaging Protocol: Rest Tc-99m/Stress Tc-99m 1 day Resting Data Rest SPECT myocardial perfusion imaging was performed in supine position 45 minutes following the int ravenous injection of 11.6 mCi of Tc-99m Sestamibi. Time of rest injection: 13:05 Date: 11/21/2024 Time of rest imagin:50 Date: 11/21/2024 Administration Route: IV Administration Site: Left Arm Pharmacologic Stress Pharmacologic stress test was performed by injecting Regadenoson 0.4 mg IV push followed by the intra venous injection of 32.5 mCi of Tc-99m Sestamibi. Time of stress injection: 13:50 Date: 11/21/2024 Time of stress imagin:50 Date: 11/21/2024 Administration Route: IV Administration Site: Left Arm Gated Stress SPECT was performed 60 minutes after stress injection. The images were gated to evaluate regional wall motion and calculate left ventricular ejection fracti on. Stress only was performed in the Supine position. Study Quality Study: false Nuclear Conclusion Nuclear Findings: negative for ischemia lvef 66% normal perfusion scan no ischemia noted
--- NOTE | 2024-11-21 16:17 | DVHSR ---
APPROVED REPORT EXAM: Two-dimensional and M-mode echocardiogram with Doppler and color Doppler. Blood Pressure: 115/71 mmHg INDICATION Chest Pain RISK FACTORS Height: 5'5, Weight: 165 DIMENSIONS LVDd4.6 (3.8-5.7cm)LA (2D)3.7 (1.9-4.0cm)Aortic Root2.8 (2.0-3.7cm) LVDs2.9 (2.5-4.0cm)LA (MM) (1.9-4.0cm)Aortic Cusp Exc1.8 (1.5-2.0cm) EF (%) 65.0 (55-70%)Rt. Atrium3.8 (1.9-4.0cm)Asc. Aorta2.8 cm IVSd1.0 (0.7-1.1cm)RV (D)3.6 (1.8-2.4cm) PWd1.0 (0.7-1.1cm) Mitral Valve MitralMitral Stenosis E wave0.87m/sMV Mean GR.mmHg A wave0.62m/sMV Peak GR.mmHg E/A ratio1.42D MVAcm2 DECEL [id number] 1/2 [place] Aortic Valve Aortic ValveAortic Stenosis V11.20m/Gerda Mean GR.4mmHg V21.33m/Gerda Peak GR.7mmHg LVOT Diameter1.9 (1.8-2.4cm)Doppler AVA2.56cm2 Pulmonic Valve V21.44m/s Tricuspid Valve TR Velocity2.57m/s [id number] Other Information Quality : Technically LimitedRhythm : Conclusion LVEF 55-60%, mild LVH no significant valve disease
[2024-11-21 16:39] VITALS: BP 121/87
[2024-11-21] MEDS: HYDROcodone-ACET 5/325MG TAB PO PRN (18:42)
--- NOTE | 2024-11-21 22:36 | DVHPN2 ---
Progress Note - Dictate Date Seen: Nov 21, 2024 Medical Necessity Reason Pt with a Central, PICC or Fol: No Subjective Patient was seen and evaluated in follow up. Echocardiogram showed an EF of 55- 60%. Stress test shows EF of 66% and is negative for ischemia. Patient is cardiac stable for discharge. Telemetry reviewed. vital signs Vital Sign Date Time Temp Pulse Resp B/P (MAP) Pulse Ox O2 Delivery O2 Flow Rate FiO2 11/21/24 09:00 97.7 71 16 122/71 (88) 98 97.7 11/21/24 08:00 Room Air* 0 21 Total Intake and Output 11/20/24 11/20/24 11/21/24 15:00 23:00 07:00 Intake Total 476 ml 800 ml 1580 ml Balance 476 ml 800 ml 1580 ml objective GENERAL: Alert and oriented x 3. No acute distress. EYES: PERRL, EOMI. Anicteric. HENT: Moist mucous membranes. LUNGS: Clear to auscultation bilaterally. CARDIOVASCULAR: Regular rate and rhythm. ABDOMEN: Soft, nontender and nondistended. EXTREMITIES: No edema. NEUROLOGIC: No focal neurological deficits. SKIN: Warm, dry. laboratory and microbiology Laboratory Tests 11/19/24 06:15 Test 11/19/24 06:15 Range/Units Serum Glucose 99 74-106 mg/dL Problem List Chest pain. Uncontrolled HTN. HLD. History of substance abuse. Assessment/Plan Continued all current supportive medical care. Continue on aspirin and statin. Amlodipine 5 mg p.o. daily. IV Hydralazine for SBP> 150. [place] for pain management. Additional plan as per the hospital course. Plan discussed with: Patient JUAN JOSE LANDEROS MD Nov 21, 2024 22:36
--- NOTE | 2024-11-23 08:43 | ECG ---
[facility] [place] Test Date: 2024-11-18 Test Time: 14:45:04 Pat Name: SUDHA RUANO Department: ED Room: 0287T Gender: M [employer] Middleware Developer: MAKSIM : 1970 Requested By: ONDINA RANDALL Order Number: [id number] Reading MD: Measurements Intervals [place] Rate: 67 P: 23 ID: [id number] QRS: 31 QRSD: 86 T: 40 QT: 383 QTc: 405 Interpretive Statements Sinus rhythm Please click the below link to view image of tracing.
--- NOTE | 2024-11-23 08:43 | ECG ---
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
== END 2024-11-21 19:56 | disposition home or self-care (01) | DRG 203 ==
LOC: ER 13:41 → OVERFLOW 23:49 → TELE-WESTW 11-19 23:12
PROVIDERS: ADMIT Internal Medicine; ATTEND Internal Medicine
DX: M94.0 Chondrocostal junction syndrome [Tietze] (principal); E78.00 Pure hypercholesterolemia, unspecified; R73.9 Hyperglycemia, unspecified; I10 Essential (primary) hypertension; Z79.899 Other long term (current) drug therapy; Z83.3 Family history of diabetes mellitus
CPT/HCPCS: 36415; 71045; 78452; 80048; 80053; 80307; 83036; 84484; 85025; 93005; 93017; 93306; 96374; 96375; 99291; 99292; G0378; J2405